=== PATIENT | female | born 1995 | race Two or more races ===

== ENCOUNTER 2019-02-23 16:33 | Emergency (ER) | payer OTHER ==
[~2019-02-23] VITALS: Ht 160 cm; Wt 60.6 kg
[2019-02-23 16:49] VITALS: BP 120/79
[2019-02-23] MEDS ORDERED: METHOCARBAMOL 750 MG TABLET ONE (17:09)
--- NOTE | 2019-02-23 17:12 | NUR ---
PT MEDICATED FOR 02/17 "ANNOYING PAIN"
[2019-02-23] MEDS ORDERED: METHOCARBAMOL 750 MG TABLET PO ONE (17:30)
== END 2019-02-23 18:28 | disposition home or self-care (01) ==
LOC: ED 18:22
DX: S16.1XXA Strain of muscle, fascia and tendon at neck level, initial encounter (principal); S29.012A Strain of muscle and tendon of back wall of thorax, initial encounter; G89.11 Acute pain due to trauma; V49.09XA Driver injured in collision with other motor vehicles in nontraffic accident, initial encounter; Y93.89 Activity, other specified; Y92.89 Other specified places as the place of occurrence of the external cause; Y99.8 Other external cause status
CPT/HCPCS: 72020; 72050; 72072; 99283